=== PATIENT | female | born 1940 | race Caucasian/White ===

== ENCOUNTER → 2016-06-07 | Outpatient (CLI) | payer OTHER | LOC: FCPNEURO 20:00 | PROVIDERS: ATTEND Student in an Organized Health Care Education/Training Program | DX: G47.33 Obstructive sleep apnea (adult) (pediatric) (principal) ==

== ENCOUNTER 2016-10-27 08:36 | Day surgery (SDC) | payer OTHER ==
--- NOTE | 2016-10-26 14:42 | GHP ---
[f rep st] PREOP HISTORY AND PHYSICAL DATE OF OPERATION: ADMISSION DIAGNOSIS: Right ureteral calculus with hydronephrosis. HISTORY OF PRESENT ILLNESS: By history, this is a 75-year-old lady who presented with abdominal and flank pain. CAT scan revealed a 7 mm x 5 mm proximal right ureteral stone with moderate hydronephrosis. She had a creatinine of 1.0, calcium 9.7. She is admitted for ureteroscopic removal of the stone. PAST MEDICAL HISTORY: Renal calculi, hypertension, hypercholesterolemia. PAST SURGERY: Knee surgery. ALLERGIES: Crab. FAMILY HISTORY: Hypertension. SOCIAL HISTORY: Nondrinker. Former smoker. REVIEW OF SYSTEMS: Negative cardiac, respiratory, GI, and endocrine. PHYSICAL EXAM: VITAL SIGNS: In the office, blood pressure 132/81. O2 saturation on room air 93%. HEENT: Head ears, eyes, nose, throat are normal. CHEST: Clear. HEART: Regular rate and rhythm. ABDOMEN: Normal. No organomegaly, rebound, or guarding. EXTREMITIES: Lower extremities are normal. At the present time, she is admitted for the above procedure. Indications, complications, options been discussed. Written and verbal consent were obtained and she is admitted as an outpatient for the above procedure. /[id number]/MODL MTDD
--- NOTE | 2016-10-27 08:10 | PDHPUP ---
History & Physical Update H&P update statement: This history and physical update is based on an assessment of the patient which was completed after admission or registration (within 24 hours), but prior to the surgery/procedure. H&P update: H&P reviewed & patient examined, no change in patient's condition since H&P completed
[~2016-10-27 08:36] MED LIST: VANCOMYCIN 2 GM in D5W 500 ML IV ONE; VANCOMYCIN PHARMACY TO DOSE MISC ONE
[2016-10-27] MEDS ORDERED: LR 1,000 ML IV ONE (08:58)
[2016-10-27] MEDS ORDERED: LIDOCAINE 1% 2 ML INJ ID PRN (08:58)
[2016-10-27] MEDS ORDERED: LIDOCAINE 2% JELLY 20 ML (UROJECT) ONE (09:25)
[2016-10-27] MEDS ORDERED: IOPAMIDOL (ISOVUE-M 300) 15 ML VIAL ONE (09:25)
[2016-10-27] MEDS ORDERED: VANCOMYCIN HCL/NORMAL SALINE 250 ML IV ONE (10:00)
[2016-10-27] MEDS ORDERED: fentaNYL 100 MCG/2 ML INJ ONE (10:03)
[2016-10-27] MEDS ORDERED: DEXAMETHASONE 4 MG/ML VIAL ONE (10:03)
[2016-10-27] MEDS ORDERED: LIDOCAINE 2% 5 ML SDV ONE (10:03)
[2016-10-27] MEDS ORDERED: PROPOFOL 200 MG/20 ML VIAL ONE (10:03)
[2016-10-27] MEDS ORDERED: ROCURONIUM 100 MG/10 ML VIAL ONE (10:12)
[2016-10-27] MEDS ORDERED: SUGAMMADEX SODIUM 200 MG/2 ML VIAL IVP ONE (10:12)
--- NOTE | 2016-10-27 10:32 | PDANEPAE ---
ANE History of Present Illness ureteral stone for cysto ANE Past Medical History - Cardiovascular History Hx Hypertension: Yes Hx Arrhythmias: No Hx Chest Pain: No Hx Coronary Artery / Peripheral Vascular Disease: No Hx CHF / Valvular Disease: No Hx Palpitations: No Cardiovascular History Comment: patient and her spouse do not know why she takes Plavix. - Pulmonary History Hx COPD: No Hx Asthma/Reactive Airway Disease: No Hx Recent Upper Respiratory Infection: No Hx Oxygen in Use at Home: No Hx Sleep Apnea: Yes Sleep Apnea Screening Result - Last Documented: Positive Pulmonary History Comment: JOSH- W/CPAP - Neurologic History Hx Cerebrovascular Accident: No Hx Seizures: No Hx Dementia: No Neurologic History Comment: on Rx moderate dementia - Endocrine History Hx Diabetes: No Endocrine History Comment: hypothyroidism - Renal History Hx Renal Disorders: Yes Renal History Comment: renal calculi, urgency - Liver History Hx Hepatic Disorders: No - Neurological & Psychiatric Hx Hx Neurological and Psychiatric Disorders: Yes Neurological / Psychiatric History Comment: anxiety,depression,insomnia,. dementia - Cancer History Hx Cancer: No - Congenital Disorder History Hx Congenital Disorders: No - GI History Hx Gastrointestinal Disorders: Yes Gastrointestinal History Comment: GERD - Chronic Pain History Chronic Pain: Yes (kidney stones) - Surgical History Prior Surgeries: bilat knee arthroplasties. hysterectomy ANE Review of Systems Review of Systems: - Exercise capacity METS (RN): 4 METS ANE Patient History - Allergies Allergies/Adverse Reactions: Penicillins Allergy (Severe, Verified 10/26/16 12:25) Anaphylaxis Sulfa (Sulfonamide Antibiotics) Allergy (Intermediate, Verified 10/26/16 12:25) Hives CRAB Allergy (Intermediate, Uncoded 07/11/11 16:35) Hives - Home Medications Home medications: home medication list seen and reviewed Home Medications: Diclofenac Sodium 1% [Voltaren Gel (RX)] 1 boogie TP TID 07/07/11 [Last Taken 07/10] Levothyroxine [Synthroid 50 mcg (RX)] 50 mcg PO DAILY06 07/07/11 [Last Taken 09/05 07:30] Solifenacin Succinate [Vesicare 5 MG (RX)] 5 mg PO DAILY8 07/07/11 [Last Taken 10/27/16] celeCOXIB [celeBREX (RX)] 33 mg PO DAILY 07/07/11 [Last Taken 10/27/16 07:30] Pharmacy Completed 07/11/11 07/11/11 [Last Taken 07/11/11] Aricept 5 MG (*) 10/26/16 [Last Taken 10/27/16 07:30] Escitalopram Oxalate 10/26/16 [Last Taken 10/27/16 07:30] Losartan Potassium 10/26/16 [Last Taken Unknown] MIRTAZAPINE 10/26/16 [Last Taken 10/26/16 21:00] Melatonin 10/26/16 [Last Taken 10/26/16 21:00] Pepcid 20 MG (*) 10/26/16 [Last Taken Unknown] Plavix 10/26/16 [Last Taken 10/26/16] Propranolol HCl 10/26/16 [Last Taken 10/27/16] Vesicare 5 MG (*) 10/26/16 [Last Taken 10/27/16 07:30] - NPO status NPO Since - Liquids (Date): 10/26/16 NPO Since - Liquids (Time): 19:00 NPO Since - Solids (Date): 10/26/16 NPO Since - Solids (Time): 19:00 - Anes Hx Anes Hx: no prior problems - Smoking Hx Smoking Status: Former smoker ANE Labs/Vital Signs - Vital Signs Blood Pressure: 138/78 Heart Rate: 46 Respiratory Rate: 20 O2 Sat (%): 93 Height: 162.56 cm Weight: 73.482 kg ANE Physical Exam - Airway Neck exam: FROM, short neck Mallampati Score: Class 2 Mouth exam: normal dental/mouth exam - Pulmonary Pulmonary: no respiratory distress - Cardiovascular Cardiovascular: regular rate and rhythym - ASA Status ASA Status: III ANE Anesthesia Plan Anesthesia Plan: general endotracheal anesthesia Urgent/Emergent Case: Flores javed completed preop but documented later for safe timely pt care
[2016-10-27] MEDS ORDERED: fentaNYL 100 MCG/2 ML INJ IVP PRN (11:47)
[2016-10-27] MEDS ORDERED: ONDANSETRON 4 MG/2 ML VIAL IVP PRN (11:47)
[2016-10-27] MEDS ORDERED: NALOXONE HCL 0.4 MG/ML INJ IVP PRN ×2 (11:47→11:48)
[2016-10-27] MEDS ORDERED: OXYCODONE/APAP 5/325 TAB PO PRN (11:47)
[2016-10-27] MEDS ORDERED: ALBUTEROL 3 ML DEYVIAL IH PRN (11:47)
[2016-10-27] MEDS ORDERED: ACETAMINOPHEN 500 MG TAB PO PRN (11:47)
[2016-10-27] MEDS ORDERED: LR 500 ML IV PRN (11:47)
--- NOTE | 2016-10-27 11:47 | POSTANESTH ---
Post Anesthetic Evaluation Cardiovascular Status: Normal, Stable Respiratory Status: Normal, Stable Level of Consciousness/Mental Status: Can Participate in Eval Pain Control: Adequate, Prn Tx Ordered Nausea/Vomiting Control: Adequate, Prn Tx Ordered Complications Possibly Related to Anesthesia: None Noted
--- NOTE | 2016-10-27 12:18 | POSTOPPROG ---
Post Op Note Date of Operation: 10/27/16 Surgeon: Willian Saleh Anesthesia: GET(General Endotracheal), LMA Pre-op Diagnosis: stone Post-op Diagnosis: dictated Indication: stone Procedure: ureteroscopy Findings: stone Inf/Abcess present in the surg proc area at time of surgery?: No EBL: Minimal Drains: Other (stent)
[2016-10-27 13:08] VITALS: TEMP 97.9
--- NOTE | 2016-10-27 13:15 | GOP ---
[f rep st] OPERATIVE REPORT DATE OF OPERATION: 10/27/2016 SURGEON: Willian Saleh MD PREOPERATIVE DIAGNOSIS: Right ureteral pelvic junction stone with hydronephrosis. POSTOPERATIVE DIAGNOSIS: Right ureteral pelvic junction stone with hydronephrosis. PROCEDURE PERFORMED: Cystoscopy with retrograde ureteral pyelogram, and fluoroscopy, ureteral dilati on, placement of ureteral access sheath, holmium laser lithotripsy of the stone, and dislodging the s tone, and then placing a 4.7 multi-length ureteral stent. Holmium laser lithotripsy was used; 724 mercy ules used. FINDINGS: DESCRIPTION OF PROCEDURE: This lady underwent general anesthesia. She was prepped and draped in nor mal sterile fashion in dorsal lithotomy position. After appropriate time-out, retrograde with a Poll ock catheter was performed. It showed an impacted stone, and some contrast got beyond into a dilated renal pelvis and collecting system. At that point, I tried to pass a guidewire beyond the stone; th at was not possible because it was impacted, so I passed ureteral access sheath up to below the stone . Attempted to use a flexible scope, but a stone was so impacted in the ureter that it was not possi ble the mobilize it to the point where I could address the stone, and I used a semi-rigid scope; it w ent up to the stone, and with the Holmium laser, I could fragment the stone into multiple pieces and then eventually negotiate and get into the renal pelvis, which was dilated and had somewhat of a clou dy urine. It did not appear to be infected. At that point, I visualized the site of the stone. The re was no perforation. It had significant edema and swelling, so at that point, I passed a guidewire beyond the stone, and removed all instruments in the ureter and then with a Cabins catheter, confir med that the ureteropelvic junction was intact. I then placed a 4.7 multi-length stent over a guidew bernard that had been replaced up the Cabins catheter. It curled in the renal pelvis and curled in the bladder. Bladder was emptied and Uro-Jet placed in the urethra, and bimanual exam revealed no pelvic pathology. At the present time, she will be discharged home, and probably I would recommend to repeat the ureter oscopy or have acute a repeat CAT scan to see what her stone burden is, since the impaction and I fra gmented the stone into small pieces, but because of the lining of the renal pelvis, I felt that I cou ld not pursue that further. She tolerated the procedure well. She will be discharged home to have followup with me in the office in approximately 1 week. I will request that she had a CAT scan done without contrast to assess sto ne burden prior to that visit. /[id number]/MODL
[2016-10-27 14:29] VITALS: RESP 16
[2016-10-27 15:06] VITALS: BP 130/82; PULSE 52; O2SAT 93
== END 2016-10-27 14:48 | disposition home or self-care (01) ==
LOC: FSGY 08:36
PROVIDERS: ATTEND Specialist
PROC: 0TF68ZZ Fragmentation in Right Ureter, Via Natural or Artificial Opening Endoscopic (ICD-10-PCS; principal; 2016-10-27 10:00)
PROC: 0T768DZ Dilation of Right Ureter with Intraluminal Device, Via Natural or Artificial Opening Endoscopic (ICD-10-PCS; principal; 2016-10-27 10:00)
PROC: 0TC68ZZ Extirpation of Matter from Right Ureter, Via Natural or Artificial Opening Endoscopic (ICD-10-PCS; principal; 2016-10-27 10:00)
DX: N13.0 Hydronephrosis with ureteropelvic junction obstruction (principal); N20.1 Calculus of ureter; I10 Essential (primary) hypertension; E78.5 Hyperlipidemia, unspecified; Z87.442 Personal history of urinary calculi; Z87.891 Personal history of nicotine dependence; K21.9 Gastro-esophageal reflux disease without esophagitis; F32.9 Major depressive disorder, single episode, unspecified; F41.9 Anxiety disorder, unspecified
CPT/HCPCS: 52356; 76001; C1758; C1769; C1894; C2625; J1100; J2704; J3010; J3370; Q9967

== ENCOUNTER 2017-12-31 12:59 | Inpatient (IN) | payer OTHER ==
--- NOTE | 2017-12-31 13:23 | EDPHY ---
H & P Time Seen by Provider: 12/31/17 13:00 HPI/ROS: CHIEF COMPLAINT: Increasing weakness HISTORY OF PRESENT ILLNESS: Patient treated with multiple antibiotics for urinary tract infection over the past several months, treated week ago last Monday and then has been on Macrobid for the last several days. Increasing weakness and now unable to walk. Little bit of increasing altered mental status. Continued fever and chills. Does not have dysuria but has been having some incontinence. Weakness is severe and generalized and not focal. Not associated with headache. REVIEW OF SYSTEMS: Eye: no change in vision ENT: no sore throat Cardiac: no chest pain or syncope Pulmonary: Chronic short of breath on oxygen, on nasal cannula in the emergency department. Abdomen: no vomiting, diarrhea, abdominal pain Musculoskeletal: no back pain Skin: no rash Neuro: no headache Constitutional: no fever : HPI A comprehensive 10 point review of systems is otherwise negative aside from elements mentioned in the history of present illness. PAST MEDICAL HISTORY: Includes dementia, hypertension, osteoarthritis, hypothyroid. Previous UTI. Social history: History also obtained from the sister who arrives with her, patient arrives by EMS. General Appearance: Patient is alert but minimally conversant. Eyes: No scleral icterus. ENT, Mouth: Normal mucous membranes. Respiratory: Normal respiratory effort, breath sounds equal, lungs are clear to auscultation. Cardiovascular: Regular rate and rhythm. Gastrointestinal: Abdomen is soft and non tender. Neurological: Minimally conversant but will answer questions and follow simple commands. She can move all 4 extremities but is generally quite weak. Skin: Warm and dry, no rashes. Musculoskeletal: 1 to 2+ peripheral edema. Psychiatric: Not agitated. Emergency Department course/MDM: Shawn Segura here at 1320, to admit for weakness and further evaluation. CBC and chemistry, cath UA, chest x-ray and D-dimer, EKG, head CT. 1450: CTA for elevated d-dimer and dyspnea/hypoxemia. 1538: CTA shows bilateral pulmonary emboli right greater than left discussed with Dr. Fisher and reviewed on the computer system with the family. Lovenox 1 milligram/kilogram subcutaneous. Urinalysis does not show evidence of infection at this time. Smoking Status: Former smoker Constitutional: Initial Vital Signs Temperature (C) 36.6 C 12/31/17 13:11 Heart Rate 67 12/31/17 13:11 Respiratory Rate 18 12/31/17 13:11 Blood Pressure 158/78 H 12/31/17 13:11 O2 Sat (%) 97 12/31/17 13:11 O2 Delivery Mode Room Air Allergies/Adverse Reactions: Penicillins Allergy (Severe, Verified 10/26/16 12:25) Anaphylaxis Sulfa (Sulfonamide Antibiotics) Allergy (Intermediate, Verified 10/26/16 12:25) Hives CRAB Allergy (Intermediate, Uncoded 07/11/11 16:35) Hives Home Medications: Medication Instructions Recorded Donepezil HCl [Aricept] 10 mg PO DAILY@09/28/17 Escitalopram Oxalate [Lexapro] 20 mg PO DAILY 09/28/17 Gabapentin [Neurontin] 800 mg PO HS 09/28/17 Levothyroxine [Synthroid 50 mcg 50 mcg PO DAILY06 09/28/17 (*)] Losartan Potassium [Cozaar 50 mg 50 mg PO DAILY 09/28/17 (*)] Melatonin [Melatonin 3 MG (*)] 3 mg PO HS 09/28/17 Memantine HCl 10 mg PO BID@09/28/17 Mirtazapine [Remeron soltab 15 mg 15 mg PO HS 09/28/17 (*)] Propranolol Sr [Inderal LA 80mg 80 mg PO DAILY@09/28/17 (*)] Nitrofurantoin Monohyd/M-Cryst 100 mg PO BID 12/31/17 [Macrobid 100 mg Capsule] QUEtiapine FUMARATE [Seroquel 25 25 mg PO HS 12/31/17 mg (*)] Medical Decision Making - Diagnostics EKG Interpretation: 12-lead EKG interpreted by me; official reading is in computer system. My interpretation is sinus rhythm rate 56 with a PC and anterolateral T-wave inversions. Imaging Results: Imaging Impressions Chest X-Ray 12/31/17 13:18 Impression: 1. Congestive heart failure, possibly pending pulmonary edema. 2. Bibasilar opacities are probably atelectasis.. Head CT 12/31/17 13:18 Impression: Elderly brain with atrophy and probable white matter small vessel disease. Nothing acute is identified. Results called and discussed with DORITA EDUARDO M.D. on 12/31/2017 at 14:12. Imaging: Discussed imaging studies w/ spray rig operator Radiologist Differential Diagnosis: Differential diagnosis considered for weakness including but not limited to electrolyte abnormality, CHF, UTI or other infection, pneumonia, pulmonary embolism - Data Points Laboratory Results: Laboratory Results 12/31/17 13:20 12/31/17 13:20 12/31/17 12/31/17 12/31/17 13:20 13:20 13:20 WBC RBC Hgb Hct MCV MCH MCHC RDW Plt Count MPV Neut % (Auto) Lymph % (Auto) [place] % (Auto) Eos % (Auto) Baso % (Auto) Nucleat RBC Rel Count Absolute Neuts (auto) Absolute Lymphs (auto) Absolute Monos (auto) Absolute Eos (auto) Absolute Basos (auto) Absolute Nucleated RBC Immature Gran % Immature Gran # D-Dimer > 20.00 ug/mLFEU H ug/mLFEU (0.00-0.50) VBG Lactic Acid 1.0 mmol/L mmol/L (0.7-2.1) Sodium 138 mEq/L mEq/L (135-145) Potassium 4.3 mEq/L mEq/L (3.3-5.0) Chloride 105 mEq/L mEq/L (97-110) Carbon Dioxide 27 mEq/l mEq/l (22-31) Anion Gap 6 mEq/L mEq/L (6-14) BUN 25 mg/dL H mg/dL (7-23) Creatinine 1.1 mg/dL H mg/dL (0.6-1.0) Estimated GFR 48 Glucose 108 mg/dL H mg/dL (70-100) Calcium 8.5 mg/dL mg/dL (8.5-10.4) TSH 1.140 uIU/mL uIU/mL (0.465-4.680) 12/31/17 13:20 WBC 11.79 10^3/uL H 10^3/uL (3.80-9.50) RBC 4.20 10^6/uL 10^6/uL (4.18-5.33) Hgb 12.1 g/dL L g/dL (12.6-16.3) Hct 37.2 % L % (38.0-47.0) MCV 88.6 fL fL (81.5-99.8) MCH 28.8 pg pg (27.9-34.1) MCHC 32.5 g/dL g/dL (32.4-36.7) RDW 16.8 % H % (11.5-15.2) Plt Count 207 10^3/uL 10^3/uL (150-400) MPV 10.0 fL fL (8.7-11.7) Neut % (Auto) 77.3 % H % (39.3-74.2) Lymph % (Auto) 8.1 % L % (15.0-45.0) [place] % (Auto) 6.1 % % (4.5-13.0) Eos % (Auto) 7.4 % % (0.6-7.6) Baso % (Auto) 0.2 % L % (0.3-1.7) Nucleat RBC Rel Count 0.0 % % (0.0-0.2) Absolute Neuts (auto) 9.12 10^3/uL H 10^3/uL (1.70-6.50) Absolute Lymphs (auto) 0.95 10^3/uL L 10^3/uL (1.00-3.00) Absolute Monos (auto) 0.72 10^3/uL 10^3/uL (0.30-0.80) Absolute Eos (auto) 0.87 10^3/uL H 10^3/uL (0.03-0.40) Absolute Basos (auto) 0.02 10^3/uL 10^3/uL (0.02-0.10) Absolute Nucleated RBC 0.00 10^3/uL 10^3/uL (0-0.01) Immature Gran % 0.9 % % (0.0-1.1) Immature Gran # 0.11 10^3/uL H 10^3/uL (0.00-0.10) D-Dimer VBG Lactic Acid Sodium Potassium Chloride Carbon Dioxide Anion Gap BUN Creatinine Estimated GFR Glucose Calcium TSH Medications Given: Acetaminophen (Tylenol) 650 mg PO Q4HRS PRN PRN Reason: Pain, Mild/Fever, Can Take PO Stop: 06/29/18 13:55 Last Admin: 12/31/17 16:44 Dose: 650 mg Donepezil HCl (Aricept) 10 mg PO DAILY@1700 SMOOTH Stop: 06/29/18 16:59 Last Admin: 11/11/18 16:43 Dose: 10 mg Sodium Chloride (Ns) 1,000 mls @ 125 mls/hr IV CONT SMOOTH Stop: 06/29/18 13:59 Last Admin: 12/31/17 16:42 Dose: 1,000 mls Discontinued Medications Enoxaparin Sodium (Lovenox) 80 mg SC EDNOW ONE Stop: 12/31/17 15:40 Last Admin: 12/31/17 16:06 Dose: 80 mg Departure - Departure Disposition: [facility] Acute Clinical Impression: Pulmonary embolism Qualifiers: Pulmonary embolism type: other Chronicity: acute Acute cor pulmonale presence: without acute cor pulmonale Qualified Code(s): I26.99 - Other pulmonary embolism without acute cor pulmonale Condition: Good
--- NOTE | 2017-12-31 13:29 | CPEKG ---
Test Reason : OPEN Blood Pressure : / mmHG Vent. Rate : 056 BPM Atrial Rate : 000 BPM P-R Int : 153 ms QRS Dur : 084 ms QT Int : 610 ms P-R-T Axes : 062 022 160 degrees QTc Int : 589 ms Sinus rhythm Atrial premature complex Repol abnrm, prob ischemia, anterolateral lds Prolonged QT interval Confirmed by Kaushal Hernández ([id number]) on 12/31/2017 1:28:38 PM Referred By: Confirmed By:Kaushal Hernández
[2017-12-31 13:36] LABS: PLATELET COUNT 207 10^3/uL (150-400)
[2017-12-31] MEDS ORDERED: ONDANSETRON 4 MG/2 ML VIAL IVP PRN (13:56)
[2017-12-31] MEDS ORDERED: PROMETHAZINE HCL 25 MG/ML INJ IVP PRN (13:56)
[2017-12-31] MEDS ORDERED: IBUPROFEN 200 MG TAB PO PRN (13:56)
[2017-12-31] MEDS ORDERED: PROMETHAZINE HCL 25 MG TAB PO PRN (13:56)
[2017-12-31] MEDS ORDERED: diphenhydrAMINE 25 MG CAP PO PRN (13:56)
[2017-12-31] MEDS ORDERED: ONDANSETRON DISINTEGRATING 4 MG TAB PO PRN (13:56)
--- NOTE | 2017-12-31 14:51 | GHP ---
DATE OF ADMISSION: 12/31/2017 REASON FOR ADMISSION: Altered mental status, weakness, probable urinary tract infection versus other infection. HISTORY OF PRESENT ILLNESS: Ms. Powell is a 77-year-old female who has underlying dementia, promin ent anxiety, and has not been doing well, on somewhat of a slippery slope for the past 2 weeks. She has been excessively tired, weak, and unmotivated to really participate in most activities. She has an intermittent cough. Her family reports it was moderately heavy on Monday. Fever and chills have not been appreciated. She denies headaches or visual changes. She denies shortness of breath. She has required higher oxygen needs during the day and night to maintain saturations of 90 or above. Th ere is no sense of chest pain. She has been eating fairly well with assistance from patient. She de nies any acute urinary symptoms. She has not any localizing pain. The overall decline of her overal l clarity has been concerning to the family and me. Her psychotropic medicines have reduced quite si gnificantly over the past couple weeks and she still remains to be tired and somewhat uninvolved/dist ant. PAST MEDICAL HISTORY: Significant for progressive dementia, anxiety, depression, history of alcoholi sm, severe idiopathic insomnia on previously very complex heavy psychotropic medication regimen, oste oarthritis, gastroesophageal reflux disease, hip pain, bilateral knee pain, status post transplant, h ypertension, palpitations, hypothyroid, urinary frequency, dysarthria with some probable tardive dysk inesia, history of hyponatremia, neuropathy, prior fairly severe neuropathic/osteoarthritic foot pain . PAST SURGICAL HISTORY: Bilateral knee replacements, hysterectomy, tonsillectomy. 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 Nonsmoker. She live s with her , Fabricio, who has been more or less her primary caregiver. Recent transfer from home to the assisted living type setting at [facility] in [place]. Her level of need has really outstrip ped what they can deliver. Family has been contributing lots of social support. She recently transf erred to respite care, which has been somewhat of a difficult transition and ultimately she seems to have outstripped the care that can be delivered given her complexities. MEDICATION ALLERGIES: Include sulfa and penicillin. She has had generalized pruritus from Keppra. She is sensitive to crab. CURRENT MEDICATIONS: Memantine 10 mg twice daily, melatonin 3 mg at h.s., gabapentin 800 mg h.s., pr opranolol 80 mg daily, mirtazapine 15 mg h.s., donepezil 10 mg daily, losartan 50 mg daily, citalopra m 20 mg daily, quetiapine 25 mg h.s., levothyroxine 50 mcg daily, Macrobid 100 mg b.i.d. recently due to E coli infection sensitive to Macrobid. REVIEW OF SYSTEMS: GENERAL: Progressive fatigue. No focal fever. Patient herself is a limited his mariana. History was supported by input from family. She has not been complaining of headaches. SUSANA NT: No suggestion of visual changes. Hearing loss has been a stable challenge. Her mouth has been dry. She has not had observed difficulty chewing or swallowing. She denies neck pain. LUNGS: Ther e is no clear evidence of shortness of breath despite profound hypoxia when she is on room air. Her cough has been intermittent. CARDIAC: She has not had chest pain. No awareness of her palpitations . ABDOMEN: No nausea, vomiting. Appetite has been good. Bowel habits have been fairly normal. No gross belly pain. : Difficulty with urinary voiding has been decreasing challenge. She has been on IV antibiotics including Invanz for extended spectrum beta lactamase resistant E coli. MUSCULOSK ELETAL: Joints without acute challenges. No recent foot pain. SKIN: Has not had any evidence of b reakdown or rash. PSYCHIATRIC: She has been more irritable as her psychotropics have been reduced. Dementia chanel, she has had less sense of awareness of what is going on around her. It has presumed been challenging for her from this transition from home to assisted living. PHYSICAL EXAM: VITAL SIGNS: Blood pressure 158/78, heart rate 67, respiratory rate 18. She sats 90 % on 3.5 L of oxygen while I examined her on the [facility] in the ER. Temperature 36.6. GENER AL: Tired, pleasant female. She opens her eyes briefly. She will give yes, no answers that really do not seem to represent her recent past. HEENT: Scalp without evidence of trauma. Pupils are symm etric. She attempts to follow commands to the best of her ability. Hearing is somewhat limited. Or opharynx is somewhat dry. No evidence of recent dental trauma or injury to her head, neck, or face. NECK: Range of motion appears intact. No neck masses. LUNGS: Mildly diminished breath sounds. C ough is somewhat coarse, currently nonproductive. No crackles. HEART: Predominantly regular rhythm with some sinus irregularity. EKG confirms about the same. No acute ST-segment elevation or depres weston. ABDOMEN: Positive bowel sounds. Soft. Occasionally an area of tenderness seems to be locate d, but then repeat examination does not cause discomfort. I think she is just being spooked by the e marley given her sedation. Breast and pelvic exam are deferred. SKIN: Warm, dry, intact. EXTREMITIES : Evidence of prior bilateral knee replacement. Lower extremity edema is trace at the moment. Feet without any acute changes. LABS: White blood cell count 11.79, hemoglobin 12.1, platelets 207, neutrophil percent is 77%. D-di iadlia is pending. Lactic acid is normal at 1.0. Electrolytes are pending. Head CT pending. Chest x- ray pending. ASSESSMENT: 1. 77-year-old female with underlying depression, anxiety, and dementia, has been on a progressive s lide suggestive of probable infective process versus rapid deterioration or less willingness or inter est in living. Will screen for infection. Check a CT of head. Chest x-ray is planned. A D-dimer i s pending. Check CT chest for pulmonary embolus, given her hypoxia, if D-dimer is positive. Will in itiate Invanz IV for coverage of probable urinary tract infection given prior complicated resistant E coli. Blood cultures have been obtained. Will hopefully obtain another urine culture prior to star ting IV antibiotics. 2. Sedation, tiredness, confusion. Will hold Seroquel and mirtazapine. Will continue her memory walden pportive medicines in Aricept and Namenda. Will continue her Lexapro 20 mg daily for her underlying anxiety. We will see if clearing of some of the more sedating medicines helps her lucency. 3. Profound hypoxia. She has known underlying sleep apnea and sleep-disordered breathing. We will continue with nighttime oxygen support for now. She does have continuous positive airway pressure at home but has not been using it since she has transitioned to assisted living. 4. Osteoarthritis, stable. 5. Hypertension, well controlled. 6. Hypothyroid. Continue with thyroid medication replacement. Given the complexity of the patient' s current situation, she will be anticipated to be in the hospital for at least 2 midnights. /[id number]/MODL
[2017-12-31] MEDS ORDERED: IOPAMIDOL (ISOVUE 370) 100 ML BTL IV ONE (14:55)
[2017-12-31] MEDS ORDERED: ENOXAPARIN 80 MG/0.8 ML SYR SC ONE (15:39)
[2017-12-31] MEDS: NS 1,000 ML IV SCH (16:42)
[2017-12-31] MEDS: DONEPEZIL HCL 5 MG TAB PO SCH (16:43)
[2017-12-31] MEDS: ACETAMINOPHEN 325 MG TAB PO PRN (16:44)
[2017-12-31] MEDS ORDERED: PROPRANOLOL SR 80 MG CAP PO SCH (17:00)
--- NOTE | 2017-12-31 17:00 | ASMTLACE ---
BENJAMIN Acuity / Level of Answers: Yes Care: Did the patient have an inpatient admission? Comorbidities - select Answers: Dementia all that apply Opioid dependence / Chronic pain Other Notes: HTN; Hypothyroid # of Emergency department Answers: 1-2 visits in the last 6 months Social determinants Answers: History of substance abuse (ETOH, street drugs, prescription drugs, etc.) Mental health diagnosis (anxiety, depression, pers onality disorders, etc.) Score: 18 Date Signed: 12/31/2017 04:59 PM Electronically Signed By:Huma Rios
[2017-12-31] MEDS: MEMANTINE HCL 5 MG TAB PO SCH (18:20)
[2018-01-01] MEDS: NS 1,000 ML IV SCH (00:16)
[2018-01-01 05:06] LABS: PLATELET COUNT 223 10^3/uL (150-400)
[2018-01-01] MEDS: LEVOTHYROXINE 50 MCG TAB PO SCH (05:30)
[2018-01-01] MEDS: ENOXAPARIN 80 MG/0.8 ML SYR SC SCH ×2 (05:30→16:48)
[2018-01-01] MEDS: ESCITALOPRAM OXALATE 10 MG TAB PO SCH (08:23)
[2018-01-01] MEDS: MEMANTINE HCL 5 MG TAB PO SCH ×2 (08:23→16:44)
[2018-01-01] MEDS: LOSARTAN POTASSIUM 50 MG TAB PO SCH ×2 (08:25→11:12)
[2018-01-01] MEDS ORDERED: ENOXAPARIN 30 MG/0.3 ML SYR SC SCH (09:00)
--- NOTE | 2018-01-01 09:01 | SOAPPROG ---
SOAP Progress Note Assessment/Plan: Assessment: Plan: 01/01/18 08:58 PE's moderate to large volume--saturations ok, no gross sx except hypoxia on room air. Continue lovenox c Diff--start vanco probable UTI--catheter sample and culture, will start Invanz after cath sample given recent history of ESBL e coli dementia--complicating finding useful symptoms sedation--less pronounced this am, seroquel and mirtazapine held carmela--will d/c propranolol htn--continue losartan for now anxiety--currently stable dispo--anticipate snf Subjective: Karal doesn't have any complaints, but her dementia limits insight. No SOB, no abdominal pain. + Hungry Objective: Vital Signs Temp Pulse Resp BP Pulse Ox 36.9 C 45 L 18 133/75 H 94 01/01/18 08:28 01/01/18 08:28 01/01/18 08:28 01/01/18 08:28 01/01/18 08:28 Laboratory Results 01/01/18 04:34 01/01/18 04:34 12/31/17 01/01/18 01/02/18 05:59 05:59 05:59 Intake Total 3138 Output Total 10 Balance 3128 Gen: tired, but more alert than yesterday Lungs: diminished BS, coarse cough Heart: carmela regular Abd + bs soft, NT, ND no discomfort with deep palpation LE's Left with 1+ edema, no tenderness Right trace edema WBC remains mildly elevated Left shift less pronounced LFT's quite elevated ICD10 Worksheet Patient Problems: Problems Problem Status Onset Pulmonary embolism Acute Sepsis Acute Urinary tract infection Acute
[2018-01-01] MEDS: ERTAPENEM 1 GM in NS 100 ML IV SCH (11:10)
[2018-01-01] MEDS: VANCOMYCIN 125 MG/2.5 ML UDL PO SCH ×3 (12:23→22:09)
--- NOTE | 2018-01-01 13:19 | PDMN ---
Medical Necessity Medical necessity: MCG: M300 UTI A-2 days: pt with rapid deterioration of mental status,SOB, - with hypoxia 3.5 L 90%, CT shows: pulm. embolic disease more severe on R side, L basilar consolidation, evolving pulm. infarct vs. pna, L pleural effusion-moderate, recent hx ESBL ecoli, WBC and LFT elevated- anticipate > 2 MN ongoing med nec care, tx and further eval.
[2018-01-01] MEDS: DONEPEZIL HCL 5 MG TAB PO SCH (16:44)
[2018-01-01] MEDS: VSL#3 1 EACH CAP PO SCH (22:10)
[2018-01-02] MEDS: LEVOTHYROXINE 50 MCG TAB PO SCH (05:07)
[2018-01-02] MEDS: VANCOMYCIN 125 MG/2.5 ML UDL PO SCH ×4 (05:07→19:22)
[2018-01-02] MEDS: ENOXAPARIN 80 MG/0.8 ML SYR SC SCH ×2 (05:07→17:53)
[2018-01-02] MEDS: NS 1,000 ML IV SCH ×2 (05:17→22:54)
[2018-01-02 05:29] LABS: PLATELET COUNT 262 10^3/uL (150-400)
--- NOTE | 2018-01-02 07:39 | SOAPPROG ---
SOAP Progress Note Assessment/Plan: Assessment: 77 yo female w/ dementia, severe depression, admitted w/ progressive lethargy and cough found to have bilateral PE's and UTI and C diff. -PE's - on lovenox, sats in low 90's on 3 L -C diff - cont on vanco -UTI - on invanz -Dementia/anxiety/depression/sedation - seroquel and mirtazapine have been held and she has had improvement, watch closely, is on aricept and namenda and lexapro currently. She had a rough morning, anxious, pulled out IV, restless, will re-start the seroquel at this point to help, dw sister and RN. -carmela yesterday and propranolol held - pulse now in 80's -hypothryoid - cont supplementation -elevated LFT's - unremarkable RUQ u/s yesterday except mild pancreatic duct thickening at 4 mm, lft's improved, will check amylase/lipase/ggt. -dispo- likely SNF, PT/OT unable to eval yesterday as pt refused. 01/02/18 10:48 Subjective: S: increased anxiety this am, restless, got out of bed pulled out iv, bm on couch, sister now in room w/ pt Objective: Vital Signs Temp Pulse Resp BP Pulse Ox 37 C 83 21 H 150/94 H 89 L 01/02/18 04:00 01/02/18 04:00 01/02/18 04:00 01/02/18 04:00 01/02/18 04:00 Laboratory Results 01/02/18 04:50 01/02/18 04:50 01/01/18 01/02/18 01/03/18 05:59 05:59 05:59 Intake Total 2762 2745 Output Total 10 Balance 3118 2749 GEN: tired appearing, resting in bed, w/ sister at bedside Heent: eomi NEck: soft/supple Chest: somewhat decreased bs throughout CV: rrr Abd: hyperactive bs Ext: 2+ pedal pulses - Pending Discharge Pending Discharge Within 24 Hours: No ICD10 Worksheet Patient Problems: Problems Problem Status Onset Pulmonary embolism Acute Sepsis Acute Urinary tract infection Acute
[2018-01-02] MEDS: ACETAMINOPHEN 325 MG TAB PO PRN (08:07)
[2018-01-02] MEDS: MEMANTINE HCL 5 MG TAB PO SCH ×2 (08:08→17:53)
[2018-01-02] MEDS: ESCITALOPRAM OXALATE 10 MG TAB PO SCH (08:08)
[2018-01-02] MEDS: LOSARTAN POTASSIUM 50 MG TAB PO SCH (08:08)
[2018-01-02] MEDS: ERTAPENEM 1 GM in NS 100 ML IV SCH (08:10)
[2018-01-02] MEDS: VSL#3 1 EACH CAP PO SCH (11:59)
[2018-01-02] MEDS: QUEtiapine FUMARATE 50 MG TAB PO SCH ×2 (11:59→19:22)
--- NOTE | 2018-01-02 12:48 | ASMTCMCOM ---
CM Note CM Note Notes: Pt was admitted with weakness and probable UTI and c-diff. She has a hx of dementia, anxiety. She is currently on IV vancomycin. She lives at [place] at [facility] in [place] with her Fabricio. He is here most days. Their daughters Mayte [phone] or Zoë [phone] can be reached as well (Fabricio does not use his voicemail). Discussed possible SNF d/c with family and they are in agreement [facility] will be best option for Fabricio to get to for visiting. Referral sent. D/C date not known. CM will follow for d/c needs. Date Signed: 01/02/2018 12:46 PM Electronically Signed By:DELORIS Unger
[2018-01-02] MEDS: DONEPEZIL HCL 5 MG TAB PO SCH (17:53)
[2018-01-02] MEDS: TEMAZEPAM 15 MG CAP PO PRN (19:22)
[2018-01-03] MEDS: ENOXAPARIN 80 MG/0.8 ML SYR SC SCH ×2 (05:57→17:03)
[2018-01-03] MEDS: LEVOTHYROXINE 50 MCG TAB PO SCH (05:57)
[2018-01-03] MEDS: VANCOMYCIN 125 MG/2.5 ML UDL PO SCH ×4 (05:57→20:51)
[2018-01-03] MEDS: NS 1,000 ML IV SCH (06:01)
[2018-01-03] MEDS: QUEtiapine FUMARATE 50 MG TAB PO SCH ×2 (08:12→20:51)
[2018-01-03] MEDS: ESCITALOPRAM OXALATE 10 MG TAB PO SCH (08:12)
[2018-01-03] MEDS: ERTAPENEM 1 GM in NS 100 ML IV SCH (08:12)
[2018-01-03] MEDS: LOSARTAN POTASSIUM 50 MG TAB PO SCH (08:12)
[2018-01-03] MEDS: MEMANTINE HCL 5 MG TAB PO SCH ×2 (08:13→17:03)
--- NOTE | 2018-01-03 09:06 | SOAPPROG ---
SOAP Progress Note Assessment/Plan: Assessment: Plan: 01/01/18 08:58 PE's moderate to large volume--saturations ok, no gross sx except hypoxia on room air. Continue lovenox c Diff--start vanco probable UTI--catheter sample and culture, will start Invanz after cath sample given recent history of ESBL e coli dementia--complicating finding useful symptoms sedation--less pronounced this am, seroquel and mirtazapine held carmela--will d/c propranolol htn--continue losartan for now anxiety--currently stable dispo--anticipate snf 01/03/18 09:06 PE's continue lovenox, will transition to DOAC c diff--continue oral vanco cultures pending, continue Invanz today, hopefully can d/c tomorrow if cultures prove to be clear sedation better off meds, but agitation up. Seroquel helping with predictable side effects carmela--resolved hope to get to SNF tomorrow Subjective: Karla is more alert and appreciative this morning. She really denies any complaints and answers no to everything. Nurse reports loose stool continue. Objective: Vital Signs Temp Pulse Resp BP Pulse Ox 36.4 C 93 20 127/86 H 95 01/03/18 07:22 01/03/18 07:22 01/03/18 07:22 01/03/18 08:12 01/03/18 07:22 Laboratory Results 01/02/18 04:50 01/02/18 04:50 01/02/18 01/03/18 01/04/18 05:59 05:59 05:59 Intake Total 2745 3131 Balance 2745 3131 Gen: brighter, speech is halted and there are some odd pauses in enunciation Neuro: underlying dementia limits insight dramatically Psych: reports of agitation, better know, she knows me and finds comfort in this Lungs: slightly coarse cough. No crackles, no wheeze Heart: RRR Carmela resolved off propranolol Abd + bs, soft nt, nd LE's no edema with SCD's and PRADIP's WBC remains mildly elevated. Urine Cx and Blood Cx remain negative to this point. LFT's improving somewhat Pancreatic labs pending ICD10 Worksheet Patient Problems: Problems Problem Status Onset Pulmonary embolism Acute Sepsis Acute Urinary tract infection Acute
--- NOTE | 2018-01-03 13:52 | SOAPPROG ---
SOAP Progress Note Assessment/Plan: Assessment: Plan: 01/01/18 08:58 PE's moderate to large volume--saturations ok, no gross sx except hypoxia on room air. Continue lovenox c Diff--start vanco probable UTI--catheter sample and culture, will start Invanz after cath sample given recent history of ESBL e coli dementia--complicating finding useful symptoms sedation--less pronounced this am, seroquel and mirtazapine held carmela--will d/c propranolol htn--continue losartan for now anxiety--currently stable dispo--anticipate snf 01/03/18 09:06 PE's continue lovenox, will transition to DOAC c diff--continue oral vanco cultures pending, continue Invanz today, hopefully can d/c tomorrow if cultures prove to be clear sedation better off meds, but agitation up. Seroquel helping with predictable side effects carmela--resolved hope to get to SNF tomorrow 01/03/18 13:51 CXR with poss more fluid, will stop IV fluids Objective: Vital Signs Temp Pulse Resp BP Pulse Ox 36.6 C 94 20 132/79 H 94 01/03/18 12:00 01/03/18 12:00 01/03/18 12:00 01/03/18 12:00 01/03/18 12:00 Microbiology 12/31/17 14:20 Urine Culture - Final Urine,Catheterized Laboratory Results 01/02/18 04:50 01/02/18 04:50 01/02/18 01/03/18 01/04/18 05:59 05:59 05:59 Intake Total 2745 3131 Output Total 250 Balance 2745 3131 -250 ICD10 Worksheet Patient Problems: Problems Problem Status Onset Pulmonary embolism Acute Sepsis Acute Urinary tract infection Acute
[2018-01-03] MEDS: DONEPEZIL HCL 5 MG TAB PO SCH (17:02)
[2018-01-03] MEDS: VSL#3 1 EACH CAP PO SCH (18:29)
[2018-01-03] MEDS: TEMAZEPAM 15 MG CAP PO PRN (20:51)
[2018-01-04] MEDS: LEVOTHYROXINE 50 MCG TAB PO SCH (05:12)
[2018-01-04] MEDS: VANCOMYCIN 125 MG/2.5 ML UDL PO SCH ×2 (05:12→12:14)
[2018-01-04] MEDS: ENOXAPARIN 80 MG/0.8 ML SYR SC SCH (05:12)
[2018-01-04] MEDS: ACETAMINOPHEN 325 MG TAB PO PRN (05:12)
[2018-01-04 06:07] LABS: PLATELET COUNT 261 10^3/uL (150-400)
[2018-01-04 08:07] VITALS: BP 170/106
--- NOTE | 2018-01-04 08:50 | SOAPPROG ---
SOAP Progress Note Assessment/Plan: Assessment: Plan: 01/01/18 08:58 PE's moderate to large volume--saturations ok, no gross sx except hypoxia on room air. Continue lovenox c Diff--start vanco probable UTI--catheter sample and culture, will start Invanz after cath sample given recent history of ESBL e coli dementia--complicating finding useful symptoms sedation--less pronounced this am, seroquel and mirtazapine held carmela--will d/c propranolol htn--continue losartan for now anxiety--currently stable dispo--anticipate snf 01/03/18 09:06 PE's continue lovenox, will transition to DOAC c diff--continue oral vanco cultures pending, continue Invanz today, hopefully can d/c tomorrow if cultures prove to be clear sedation better off meds, but agitation up. Seroquel helping with predictable side effects carmela--resolved hope to get to SNF tomorrow 01/03/18 13:51 CXR with poss more fluid, will stop IV fluids 01/04/18 08:48 PE's--will switch to Eliquis 10 mg BID for 1 week, then 5 mg BID. D/C Lovenox c diff--continue QID vanco for 1 week suspected UTI with ESBL culture negative d/c invanz dementia, weakness--will need SNF carmela--resolved after stopping propranolol HTN increase losartan today Dispo--[facility] today Subjective: Karla doesn't have complaints this am. She seems comfortable and reasonable at the moment. Limited insight given dementia. 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
--- NOTE | 2018-01-04 08:57 | PDIAF ---
- Diagnosis Diagnosis: PE's-moderate volume. c diff, dementia Code Status: Do Not Resuscitate - Medication Management Duplicating Machine Operator Antibiotics: vancomycin 125 mg oral QID Duplicating Machine Operator Antibiotic Stop Date: 01/11/18 Discharge Medications: electronically signed and located in the Home Medication List. PICC Care - Routine: N/A - Orders Services needed: Registered Nurse, Physical Therapy, Occupational Therapy Isolation Type: CDIFF Isolation, Contact Isolation Diet Recommendation: no restrictions on diet Diet Texture: Regular Texture Diet, Meds Whole w/Liquids Tube feeding: n/a Weigh Patient: weekly Tariq: No Activity/Weight Bearing Restrictions: full as tolerated Additional Instructions: Eliquis 10 mg BID until 01/11, then reduce to 5 mg BID thereafter for shelter PE protection End Vancomycin on 01/11 - Labs/Radiology BMP Date: 01/11/18 CBC w/diff Date: 01/11/18 - Follow Up Care Current Providers and Referrals: Shawn Segura PA [Physician Pig Machine Supervisor] -
[2018-01-04] MEDS ORDERED: APIXABAN 5 MG TAB PO SCH ×2 (09:00→18:00)
[2018-01-04] MEDS ORDERED: LOSARTAN POTASSIUM 50 MG TAB PO SCH (09:00)
--- NOTE | 2018-01-04 09:46 | ASMTCMCOM ---
CM Note CM Note Notes: Patient medically cleared for discharge to SNF [facility]. Final orders via allscripts. Will alert nurse to call report. Spoke to Han at [facility] and she will arrange transport. Family to be notified of pending transfer. CM available should needs arise. Plan: Dc to [facility] Date Signed: 01/04/2018 09:45 AM Electronically Signed By:Clarice Valente RN
[2018-01-04] MEDS: ESCITALOPRAM OXALATE 10 MG TAB PO SCH (09:50)
[2018-01-04] MEDS: MEMANTINE HCL 5 MG TAB PO SCH (09:51)
[2018-01-04] MEDS: VSL#3 1 EACH CAP PO SCH (09:53)
[2018-01-04] MEDS ORDERED: QUEtiapine FUMARATE 50 MG TAB PO SCH (21:00)
--- NOTE | 2018-01-05 22:20 | GDS ---
REASON FOR ADMISSION: Lethargy, confusion, concern for underlying infection. DISCHARGE DIAGNOSES: 1. Lethargy, confusion, likely linked to hypoxemia due to profound pulmonary emboli. 2. Underlying dementia with anxiety component. 3. Finding of Clostridium difficile positive stool. 4. Suspicion for urinary tract infection with history of extended-spectrum beta-lactamase [place] a coli. 5. Hypothyroid, stable. 6. Hypertension, stable. 7. Bradycardia, new finding, resolved after stopping propranolol. HOSPITAL COURSE: Patient was admitted through the emergency room due to increasing lethargy. She wa s requiring higher oxygen supply to maintain saturations near 90%. Her D-dimer was positive in the E R setting. CT chest was positive for moderate volume PEs. Given this finding, she was started on Lo venox weight based protocol 1 mg/kg b.i.d. After 5 days, she was requiring less oxygen. This was tr ansitioned to Eliquis 10 mg b.i.d. She will take this for 1 week and then 5 mg b.i.d. thereafter. U nderlying C difficile was treated with oral vancomycin. There was some hint of improvement in bowel habits. Given her history of recent ESBL E coli, she was started on Invanz once daily for probable u rinary tract infection. Ultimately, urine sample and urine culture were negative for infection. Blo od cultures remained negative. Underlying confusion and [facility] with the need to improve on her underlying weaknes s in an improved condition. She will continue on the above medications including vancomycin q.i.d. f or 7 days. She will continue on Eliquis 5 mg b.i.d. 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 Underlying dementia seems currently stable. It is a profound compli cation and limits her history. She will transition to [facility] and then hopefully resume assisted l iving at [facility] in [place]. /[id number]/MODL
--- NOTE | 2018-01-07 09:21 | ASDISCHSUM ---
Discharge Information Plan Status:SNF Medically Cleared to Leave:01/03/2018 Discharge Date:01/04/2018 02:03 PM D/C Disposition:[facility] ADT D/C Disposition:Senior Care Facility Projected Discharge Date:01/04/2018 11:00 AM Transportation at D/C:ALS/BLS Discharge Delay Reason: Follow-Up Date:01/04/2018 11:00 AM Discharge Slot: Final Diagnosis: Placement Information Referral Type:*Jail/SNF Referral ID:[id number] Provider Name:Breanna Callahan Address 1:[address] Phone Number: Address 2: Fax Number: City:[place] Selection Factors: State:[place] Patient Contact Information Contact Name:RIKIHAMIDA Relationship: Address:[address] [place] [address] City:[place] Alternate Phone: State/Zip Code:[place] [address] Email: Financial Information Financial Class:Medicare Advantage Plans Primary Plan Desc:[facility] ADVANTAGE PLANS Primary Plan Number:[id number] Secondary Plan Desc: Secondary Plan Number: Assessment Information LACE LACE Acuity / Level of Answers: Yes Care: Did the patient have an inpatient admission? Comorbidities - select Answers: Dementia all that apply Opioid dependence / Chronic pain Other Notes: HTN; Hypothyroid # of Emergency department Answers: 1-2 visits in the last 6 months Social determinants Answers: History of substance abuse (ETOH, street drugs, prescription drugs, etc.) Mental health diagnosis (anxiety, depression, pers onality disorders, etc.) Score: 18 Date Signed: 12/31/2017 04:59 PM Electronically Signed By:Huma Rios [facility] CM Progress Note CM Note CM Note Notes: Pt was admitted with weakness and probable UTI and c-diff. She has a hx of dementia, anxiety. She is currently on IV vancomycin. She lives at [place] at [facility] in [place] with her Fabricio. He is here most days. Their daughters Mayte [phone] or Zoë [phone] can be reached as well (Fabricio does not use his voicemail). Discussed possible SNF d/c with family and they are in agreement [facility] will be best option for Fabricio to get to for visiting. Referral sent. D/C date not known. CM will follow for d/c needs. Date Signed: 01/02/2018 12:46 PM Electronically Signed By:DELORIS Unger [facility] CM Progress Note CM Note CM Note Notes: Patient medically cleared for discharge to [facility]. Final orders via allscripts. Will alert nurse to call report. Spoke to Han at [facility] and she will arrange transport. Family to be notified of pending transfer. CM available should needs arise. Plan: Dc to [facility] Date Signed: 01/04/2018 09:45 AM Electronically Signed By:Clarice Valente RN Intervention Information Intervention Type:*IM-Signed Date of Service:01/04/2018 09:59 AM Patient Type:Inpatient Staff Member:Huma Rios Hours: Discipline: Severity: Comment:
== END 2018-01-04 14:03 | DRG 176 ==
LOC: EDUNIT# → F1N 16:15
PROVIDERS: ADMIT Internal Medicine; ATTEND Internal Medicine
DX: I26.99 Other pulmonary embolism without acute cor pulmonale (principal); A04.72 Enterocolitis due to Clostridium difficile, not specified as recurrent; N39.0 Urinary tract infection, site not specified; B96.20 Unspecified Escherichia coli [E. coli] as the cause of diseases classified elsewhere; F03.90 Unspecified dementia, unspecified severity, without behavioral disturbance, psychotic disturbance, mood disturbance, and anxiety; I10 Essential (primary) hypertension; M19.90 Unspecified osteoarthritis, unspecified site; E03.9 Hypothyroidism, unspecified; Z96.653 Presence of artificial knee joint, bilateral; F10.21 Alcohol dependence, in remission
CPT/HCPCS: 97116-GP; 97162-GP; 97166-GO; 97530-GO; 97530-GP; G8978-GP-CK; G8979-GP-CJ; G8987-GO-CK; G8988-GO-CJ; J1335; J1650; Q9967